=== PATIENT | male | born 1990 | race Caucasian/White ===

== ENCOUNTER 2020-12-06 23:02 | Observation (INO) ==
[2020-12-07] LABS: Hematocrit (blood only) 45.7 % (42-52); Hemoglobin 15.7 g/dL (14.0-18.0); Mean Corpuscular Hemoglobin 30.4 pg (25-34); Mean Corpuscular Hgb Conc 34.4 g/dL (32-36); Mean Corpuscular Volume 88.6 fL (80-100); Mean Platelet Volume 11.4 fL (7.4-10.4); Platelet Count 228 K/uL (130-400); RDW Coefficient of Variation 13.2 % (11.5-14.5); RDW Standard Deviation 43.2 fL (36.4-46.3); Red Blood Count 5.16 M/uL (4.7-6.1); White Blood Count 9.43 K/uL (4.8-10.8)
[2020-12-07 00:17] LABS: Albumin Level 3.6 gm/dl (3.4-5.0); BUN Creatinine Ratio 8.5 (10-20); Creatinine Clr Calc Pharmacy 93.5 ml/min; Est GFR (Non-African American) 66.5 ml/min; Potassium 4.3 mmol/L (3.5-5.1)
[2020-12-07 00:50] LABS: Bilirubin,Total 0.5 mg/dl (0.2-1); Globulin 3.7 gm/dl (2.5-4.0); Total Protein 7.3 gm/dl (6.4-8.2); Troponin I 0.051 ng/ml (0-0.045)
[2020-12-07 00:53] LABS: Basophils # (auto) 0.03 K/uL (0-0.2); Basophils % (auto) 0.3 %; Eosinophils # (auto) 0.09 K/uL (0-0.5); Immature Granulocytes # (auto) 0.03 K/uL (0.00-0.02); Immature Granulocytes % (auto) 0.3 %; Lymphocytes # (auto) 2.44 K/uL (1.2-3.4); Lymphocytes % (auto) 25.9 %; Monocytes # (auto) 0.41 K/uL (0.11-0.59); Monocytes % (auto) 4.3 %; Neutrophils # (auto) 6.43 K/uL (1.4-6.5); Neutrophils % (auto) 68.2 %; RBC Morphology Unremarkable
[2020-12-07] MEDS ORDERED: ASPIRIN CHEW 324 MG ONE (01:15)
[2020-12-07] MEDS ORDERED: ASPIRIN CHEW 324 MG PO STA (01:15)
[2020-12-07] MEDS ORDERED: METOPROLOL TARTRATE 1 MG/ML VIAL IV STA (01:34)
[2020-12-07] MEDS ORDERED: METOPROLOL TARTRATE 1 MG/ML VIAL IV ONE (01:35)
--- NOTE | 2020-12-07 01:58 | History & Physical Report ---
Date of Service December 07, 2020 Assessment & Plan (1) Elevated troponin: Plan: 30yo male with no significant past medical history presenting with elevated blood pressure reading and troponin. Patient has been experiencing increased stress at home and work. Describes an episode of pain behind his eyes, blurry vision and chest tightness associated with elevated blood pressure of 160/100. Presently asymptomatic. Denies chest pain, palpitations, shortness of breath, dizziness EKG with some non-specific changes, namely rightward axis and incomplete RBBB. No risk for PE. No tachycardia or hypoxia Troponin is elevated at 0.051. Ddx to include supply-demand mismatch in setting of acute hypertension, ?stress-induced cardiomyopathy. Do not strongly suspect ACS at this time given lack of risk factors -Observation to medical with telemetry monitoring -Trend troponin q 6 hours x 3 sets -Check 2D echo in AM -ASA 81mg po daily for now. May not need to be continued pending findings of above studies. (2) Elevated blood pressure reading: Plan: Patient with no prior history of hypertension. He does not follow routinely with a PCP. Has had physicals in the past while he was in the [employer], has never had elevated blood pressure. Possibly secondary to acute stress response in setting of increased stressors at home and work. Possibly underlying anxiety as well -Metoprolol 5mg IV given with improvement in blood pressure. Presently 154/82 -Continue to monitor -Patient should establish with a PCP to have his blood pressure followed -Consider use of PRN agent such as hydroxyzine for episodes of increased stress or anxiety Plan: F/E/N - Heplock. Electrolytes WNL. Heart healthy diet as tolerated Ppx - Low risk for DVT. Encourage ambulation Code - Full Dispo - Observation to medical with telemetry History of Present Illness Chief Complaint: hypertension, elevated troponin Primary Care Provider: NO PCP Jose Hernandez is a 30yo male with no significant past medical or surgical history presenting with elevated blood pressure, troponin of 0.051. Patient has been under a considerable amount of stress lately. He feels that he is usually able to manage his stress however, today he felt more stressed out than normal. He was at work and developed blurry vision, pain behind his eyes and tightness in his chest. He checked his blood pressure and it was elevated at 160/100. He came to the ER for further evaluation. Upon arrival patient afebrile, hypertensive with BP ranging 155-190 / 77-108. No complaints of chest pain, palpitations or SOB Patient does not routinely follow with a PCP. Has never been told that he has high blood pressure Denies excessive use of caffeine, no stimulants, steroids or supplements No additional complaints at this time ER Course: Metoprolol tartrate 5mg IV, ASA 324mg Allergies Allergy/AdvReac Type Severity Reaction Status Date / Time No Known Allergies Allergy Unverified 12/07/20 00:45 Home Medications Medication Instructions Recorded Confirmed Type glucosamine sulf dipot 2 cap PO QAM 12/07/20 12/07/20 History chlr,msm,chond 550 mg-C 30 mg-cristel 1 mg capsule (Glucosamine Chondroitin) multivitamin 1 tab PO QAM 12/07/20 12/07/20 History omega 8-oab-eez-fish oil 1,000 mg 1 cap PO QAM 12/07/20 12/07/20 History (120 mg-180 mg) capsule (Fish Oil) Past Med/Surg History Medical History (Updated 12/07/20 @ 02:27 by Gloria Perdue DO) No significant past medical history Surgical History (Updated 12/07/20 @ 02:22 by Gloria Perdue DO) No significant past surgical history Social History (Updated 12/07/20 @ 02:22 by Gloria Perdue DO) Smoking Status: Never smoker Hx Alcohol Use: No Hx Substance Use: No Preferred Language: Tristanian Communication Ability: Effective Pipeline Dispatcher Required: No Beliefs That Will Affect Care: None Current Living Situation: Alone Feels Safe at Home: Yes Safety Concerns: Feels Safe At This Time Assistive Devices: None Review of Systems Review of Systems: All systems reviewed & are unremarkable except as noted in HPI & below Physical Exam Physical Exam: General: patient resting comfortably, NAD, non-toxic in janak earance, AA&O x 4 Skin: warm, dry, intact, no rashes or lesions HEENT: NC/AT, PERRL, EOMI, anicteric sclera, conjunctiva without injection, external ear normal to inspection and nontender, nares patent, moist mucus membranes, dentition intact, no oropharyngeal lesions, neck supple, trachea midline, no LAD, no thyromegaly, no JVD Heart: +S1/S2, regular, no m/r/g Lungs: equal air entry bilaterally, no rales/rhonchi/wheezes Abd: +BS, soft, NT/ND, no masses/organomegaly/ascites Ext: warm, 2+ pulses in UE/LE bilaterally, no clubbing/cyanosis or edema Neuro: nonfocal, patient AA&O x 4, speech intact, no facial droop, moving all extremities on command with equal strength 5/5 Results & Data Results & Data ([facility]) Vital Signs (Past 12 Hours) Vital Signs Temp Pulse Pulse Resp BP BP Pulse Ox 12/07/20 01:56 74 16 180/88 H 98 12/07/20 01:40 89 16 190/95 H 98 12/07/20 01:03 89 16 175/94 H 98 12/07/20 00:31 89 16 170/90 H 98 12/07/20 00:10 86 16 155/77 H 98 12/07/20 00:01 98 12/06/20 23:11 36.9 C 87 18 166/108 H 97 Laboratory Results Laboratory Results WBC 9.43 K/uL (4.8-10.8) 12/06/20 23:55 RBC 5.16 M/uL (4.7-6.1) 12/06/20 23:55 Hgb 15.7 g/dL (14.0-18.0) 12/06/20 23:55 Hct 45.7 % (42-52) 12/06/20 23:55 MCV 88.6 fL (80-100) 12/06/20 23:55 MCH 30.4 pg (25-34) 12/06/20 23:55 MCHC 34.4 g/dL (32-36) 12/06/20 23:55 RDW Std Deviation 43.2 fL (36.4-46.3) 12/06/20 23:55 RDW Coeff of Brandi 13.2 % (11.5-14.5) 12/06/20 23:55 Plt Count 228 K/uL (130-400) 12/06/20 23:55 MPV 11.4 fL (7.4-10.4) H 12/06/20 23:55 Immature Gran % (Auto) 0.3 % 12/06/20 23:55 Neut % (Auto) 68.2 % 12/06/20 23:55 Lymph % (Auto) 25.9 % 12/06/20 23:55 Jack % (Auto) 4.3 % 12/06/20 23:55 Eos % (Auto) 1.0 % 12/06/20 23:55 Baso % (Auto) 0.3 % 12/06/20 23:55 Neut # (Auto) 6.43 K/uL (1.4-6.5) 12/06/20 23:55 Lymph # (Auto) 2.44 K/uL (1.2-3.4) 12/06/20 23:55 Jack # (Auto) 0.41 K/uL (0.11-0.59) 12/06/20 23:55 Eos # (Auto) 0.09 K/uL (0-0.5) 12/06/20 23:55 Baso # (Auto) 0.03 K/uL (0-0.2) 12/06/20 23:55 Immature Gran # (Auto) 0.03 K/uL (0.00-0.02) H 12/06/20 23:55 RBC Morphology Unremarkable 12/06/20 23:55 Sodium 138 mmol/L (136-145) 12/06/20 23:55 Potassium 4.3 mmol/L (3.5-5.1) 12/06/20 23:55 Chloride 107 mmol/L (98-107) 12/06/20 23:55 Carbon Dioxide 26 mmol/L (21-32) 12/06/20 23:55 Anion Gap 4.0 (3-11) 12/06/20 23:55 BUN 12 mg/dl (7-18) 12/06/20 23:55 Creatinine 1.40 mg/dl (0.6-1.4) 12/06/20 23:55 Est Cr Clr Drug Dosing 93.5 ml/min 12/06/20 23:55 Est GFR ( Amer) 77.0 ml/min 12/06/20 23:55 Est GFR (Non-Af Amer) 66.5 ml/min 12/06/20 23:55 BUN/Creatinine Ratio 8.5 (10-20) L 12/06/20 23:55 Glucose 101 mg/dl (70-99) H 12/06/20 23:55 Calcium 9.0 mg/dl (8.5-10.1) 12/06/20 23:55 Total Bilirubin 0.5 mg/dl (0.2-1) 12/06/20 23:55 AST 60 U/L (15-37) H 12/06/20 23:55 ALT 73 U/L (12-78) 12/06/20 23:55 Alkaline Phosphatase 61 U/L (45-117) 12/06/20 23:55 Troponin I 0.051 ng/ml (0-0.045) H* 12/06/20 23:55 Total Protein 7.3 gm/dl (6.4-8.2) 12/06/20 23:55 Albumin 3.6 gm/dl (3.4-5.0) 12/06/20 23:55 Globulin 3.7 gm/dl (2.5-4.0) 12/06/20 23:55 Albumin/Globulin Ratio 1.0 (0.9-2) 12/06/20 23:55 COVID-19 Eval Order Covid19 at [facility] 12/07/20 01:22 Diagnostic Findings CXR - by my interpretation - normal cardiac shadow, no infiltrate, edema, PTX ECG Additional Comments: EKG with SR at 83bpm, 1st degree AV block with VI=322, YNI=649, NSv=960, rightward axis, incomplete RBBB, no prior studies available for comparison Code Status & VTE Plan VTE Prophylaxis Plan VTE Prophylaxis will be ordered: Yes PG Care Time/CCT Total # of Minutes Spent Total Time Spent with Patient: Total time spent is greater than 50% in coordination of care (as documented) at patient's floor/unit and/or counseling patient: Coding Level of Care Code INT OBSERVATION CARE 50M LVL 2 Diagnoses Elevated blood pressure reading R03.0 Elevated troponin R77.8
[2020-12-07] MEDS ORDERED: ACETAMINOPHEN 325 MG TAB PO PRN (02:51)
[2020-12-07] MEDS ORDERED: ONDANSETRON INJ 2 MG/ML 2 ML VIAL IV PRN (02:51)
--- NOTE | 2020-12-07 03:21 | Emergency Department Note ---
Impression & Plan Acute non-ST elevation myocardial infarction (NSTEMI), Hypertension Admit to the [facility] ED Provider Note NAME: ZULLY FLETCHER AGE: 30 SEX: M ARRIVES VIA: Walk-In INFORMANT: Patient ED PROVIDER(S): Jamila Lo DO CHIEF COMPLAINT: Chest tightness PLAN: Disposition: Admit to the [facility] Condition: Stable MEDICAL DECISION MAKING: This is a 30-year-old male patient who presents to the emergency department complaining of chest tightness dizziness and blurry vision. Patient was found to be hypertensive at work and was referred here for evaluation. Patient was noted to be significantly hypertensive on presentation. The patient admits to significant increased stress. Patient was noted to have an elevated troponin. Patient was given aspirin and Lopressor. Chest x-ray was unremarkable. [facility] for further management Triage Nursing notes reviewed and agree with them. Vital Signs: reviewed and remarkable for pretension Differential diagnosis: STEMI, NSTEMI, anxiety, hypertension, takotsubo cardiomyopathy ER treatment provided: Aspirin, Lopressor Diagnostics interpreted by me: ECG: Normal sinus rhythm at a rate of 83 with first-degree AV block. There is an incomplete right bundle branch block with a rightward axis. There are no previous EKGs for comparison. There is no ectopy. Cardiac Monitoring: Normal sinus rhythm at 88 Laboratory studies: See below Imaging studies: As per my interpretation Portable chest x-ray: Narrow mediastinum; no cardiomegaly; no pulmonary pathology HPI: 30/M arrives for evaluation of chest tightness and blurry vision. The patient arrived at work complaining of chest tightness, dizziness and blurry vision. He admits to being under significant increased stress. 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 The nursing staff they took his blood pressure and found to be significantly elevated. They directed him here for evaluation. The patient admits that he has been having these symptoms frequently over the past month. He has been under significant stress related to his divorce. He has very few risk factors for heart disease. The patient works out frequently but did not work out today. ROS: See above HPI for pertinent positives & negatives. A total of 10 systems reviewed and were otherwise negative. PAST MEDICAL HISTORY:None PAST SURGICAL HISTORY:None FAMILY HISTORY:None SOCIAL HISTORY:The patient was in the [employer]; he is now a lieutenant at [employer]; he does not smoke; he is HOME MEDICATIONS:None ALLERGIES:None VITALS:See Below PHYSICAL EXAMINATION: HEENT: Head - normocephalic and atraumatic Pupils are equal, round, and reactive to light. Extraocular eye muscles are intact, and sclera are anicteric. Nose - moist nasal mucosa without discharge. Mouth - moist buccal mucosa. Oropharynx is nonerythematous and there is no tonsillar exudate or edema noted. Neck: Supple; no cervical lymphadenopathy or JVD Heart: Regular rate and rhythm. There is a normal S1 and S2 with no murmurs, clicks, or gallops appreciated. Lungs: Clear to auscultation bilaterally with no wheezes, rales, or rhonchi. Abdomen: Soft, completely nontender, nondistended, with good bowel sounds. There are no palpable pulsatile masses or hepatosplenomegaly. There is no guarding, rigidity, or rebound noted. Extremities: No evidence of cyanosis, clubbing, or edema. There are easily palpable peripheral pulses. Skin: warm and dry with good turgor and no rashes. ED COURSE: Patient was evaluated in room B 12. A complete history and physical was performed. An order was placed for continuous cardiac monitoring. The patient was in a normal sinus rhythm at a rate of 88. A twelve-lead EKG was obtained. An IV lock was initiated and labs are drawn as above. A portable chest x-ray was performed and was unremarkable. Patient's blood pressure remained elevated and he was given 5 mg of IV Lopressor. He was given oral aspirin. I reviewed the results of the labs and x-ray with patient. Terri the case with the [facility] hospitalist and they will evaluate for further management. The patient was given aspirin by mouth. His blood pressure remained elevated and he was given 5 mg of IV Lopressor. Jamila Lo DO Past Med/Surg History Medical History (Updated 12/07/20 @ 03:21 by Jamila Lo DO) No significant past medical history Surgical History (Updated 12/07/20 @ 02:22 by Gloria Perdue DO) No significant past surgical history Social History (Updated 12/07/20 @ 02:22 by Gloria Perdue DO) Smoking Status: Never smoker Hx Alcohol Use: No Hx Substance Use: No Preferred Language: Liberian Communication Ability: Effective Control Officer Manager Required: No Beliefs That Will Affect Care: None Current Living Situation: Alone Feels Safe at Home: Yes Assistive Devices: None Allergies Allergies Allergy/AdvReac Type Severity Reaction Status Date / Time No Known Allergies Allergy Unverified 12/07/20 00:45 Home Meds Home Medications Medication Instructions Recorded Confirmed glucosamine sulf dipot 2 cap PO QAM 12/07/20 12/07/20 chlr,msm,chond 550 mg-C 30 mg-cristel 1 mg capsule (Glucosamine Chondroitin) multivitamin 1 tab PO QAM 12/07/20 12/07/20 omega 9-puh-cpo-fish oil 1,000 mg 1 cap PO QAM 12/07/20 12/07/20 (120 mg-180 mg) capsule (Fish Oil) Results & Data (ED) Vital Signs Vital Signs - 24 hr 12/06/20 23:11 12/07/20 00:01 12/07/20 00:10 Temperature 36.9 C Temperature Source Temporal Artery Scan Pulse Rate 87 Pulse Rate [Right Finger] 86 Respiratory Rate 18 16 Respiratory Depth Normal Blood Pressure 166/108 H Blood Pressure [Right Arm] 155/77 H Blood Pressure Mean 127 Blood Pressure Mean [Right Arm] 103 Blood Pressure Position [Right Arm] Sitting Pulse Oximetry 97 98 98 Oxygen Delivery Method Room Air Room Air Room Air Sepsis Recent Fever Within 48 Hours No Sepsis New/Unexplained Change in Mental Status No Sepsis Action Taken by Nursing No Action Required 12/07/20 00:31 12/07/20 01:03 12/07/20 01:40 Temperature Temperature Source Pulse Rate Pulse Rate [Right Finger] 89 89 89 Respiratory Rate 16 16 16 Respiratory Depth Blood Pressure Blood Pressure [Right Arm] 170/90 H 175/94 H 190/95 H Blood Pressure Mean Blood Pressure Mean [Right Arm] 116 121 126 Blood Pressure Position [Right Arm] Sitting Lying Sitting Pulse Oximetry 98 98 98 Oxygen Delivery Method Room Air Room Air Room Air Sepsis Recent Fever Within 48 Hours Sepsis New/Unexplained Change in Mental Status Sepsis Action Taken by Nursing Laboratory Data Result diagrams: 12/06/20 23:55 12/06/20 23:55 Lab Results 12/06/20 12/06/20 12/07/20 Range/Units 23:55 23:55 01:22 WBC 9.43 (4.8-10.8) K/uL RBC 5.16 (4.7-6.1) M/uL Hgb 15.7 (14.0-18.0) g/dL Hct 45.7 (42-52) % MCV 88.6 (80-100) fL MCH 30.4 (25-34) pg MCHC 34.4 (32-36) g/dL RDW Std Deviation 43.2 (36.4-46.3) fL RDW Coeff of Brandi 13.2 (11.5-14.5) % Plt Count 228 (130-400) K/uL MPV 11.4 H (7.4-10.4) fL Immature Gran % (Auto) 0.3 % Neut % (Auto) 68.2 % Lymph % (Auto) 25.9 % [place] % (Auto) 4.3 % Eos % (Auto) 1.0 % Baso % (Auto) 0.3 % Neut # (Auto) 6.43 (1.4-6.5) K/uL Lymph # (Auto) 2.44 (1.2-3.4) K/uL [place] # (Auto) 0.41 (0.11-0.59) K/uL Eos # (Auto) 0.09 (0-0.5) K/uL Baso # (Auto) 0.03 (0-0.2) K/uL Immature Gran # (Auto) 0.03 H (0.00-0.02) K/uL RBC Morphology Unremarkable Sodium 138 (136-145) mmol/L Potassium 4.3 (3.5-5.1) mmol/L Chloride 107 (98-107) mmol/L Carbon Dioxide 26 (21-32) mmol/L Anion Gap 4.0 (3-11) BUN 12 (7-18) mg/dl Creatinine 1.40 (0.6-1.4) mg/dl Est Cr Clr Drug Dosing 93.5 ml/min Est GFR ( Amer) 77.0 ml/min Est GFR (Non-Af Amer) 66.5 ml/min BUN/Creatinine Ratio 8.5 L (10-20) Glucose 101 H (70-99) mg/dl Calcium 9.0 (8.5-10.1) mg/dl Total Bilirubin 0.5 (0.2-1) mg/dl AST 60 H (15-37) U/L ALT 73 (12-78) U/L Alkaline Phosphatase 61 (45-117) U/L Troponin I 0.051 H* (0-0.045) ng/ml Total Protein 7.3 (6.4-8.2) gm/dl Albumin 3.6 (3.4-5.0) gm/dl Globulin 3.7 (2.5-4.0) gm/dl Albumin/Globulin Ratio 1.0 (0.9-2) COVID-19 Eval Order Covid19 at [facility] SARS-CoV-2 (PCR) (Negative) 12/07/20 Range/Units 01:22 WBC (4.8-10.8) K/uL RBC (4.7-6.1) M/uL Hgb (14.0-18.0) g/dL Hct (42-52) % MCV (80-100) fL MCH (25-34) pg MCHC (32-36) g/dL RDW Std Deviation (36.4-46.3) fL RDW Coeff of Brandi (11.5-14.5) % Plt Count (130-400) K/uL MPV (7.4-10.4) fL Immature Gran % (Auto) % Neut % (Auto) % Lymph % (Auto) % [place] % (Auto) % Eos % (Auto) % Baso % (Auto) % Neut # (Auto) (1.4-6.5) K/uL Lymph # (Auto) (1.2-3.4) K/uL [place] # (Auto) (0.11-0.59) K/uL Eos # (Auto) (0-0.5) K/uL Baso # (Auto) (0-0.2) K/uL Immature Gran # (Auto) (0.00-0.02) K/uL RBC Morphology Sodium (136-145) mmol/L Potassium (3.5-5.1) mmol/L Chloride (98-107) mmol/L Carbon Dioxide (21-32) mmol/L Anion Gap (3-11) BUN (7-18) mg/dl Creatinine (0.6-1.4) mg/dl Est Cr Clr Drug Dosing ml/min Est GFR ( Amer) ml/min Est GFR (Non-Af Amer) ml/min BUN/Creatinine Ratio (10-20) Glucose (70-99) mg/dl Calcium (8.5-10.1) mg/dl Total Bilirubin (0.2-1) mg/dl AST (15-37) U/L ALT (12-78) U/L Alkaline Phosphatase (45-117) U/L Troponin I (0-0.045) ng/ml Total Protein (6.4-8.2) gm/dl Albumin (3.4-5.0) gm/dl Globulin (2.5-4.0) gm/dl Albumin/Globulin Ratio (0.9-2) COVID-19 Eval Order SARS-CoV-2 (PCR) NEGATIVE (Negative) Administered Medications Discontinued Medications Aspirin (Aspirin Chew 324 Mg) 324 mg PO NOW STA Stop: 12/07/20 01:16 Last Admin: 12/07/20 01:22 Dose: 324 mg Documented by: [id number] Aspirin (Aspirin Chew 324 Mg) Confirm Administered Dose 324 mg .ROUTE .STK-MED ONE Stop: 12/07/20 01:16 Last Admin: 12/07/20 01:22 Dose: Not Given Documented by: [id number] Metoprolol Tartrate (Metoprolol Tartrate 1 Mg/Ml Vial) 5 mg IV NOW STA Stop: 12/07/20 01:35 Last Admin: 12/07/20 01:39 Dose: 5 mg Documented by: [id number] Metoprolol Tartrate (Metoprolol Tartrate 1 Mg/Ml Vial) Confirm Administered Dose 5 mg IV .STK-MED ONE Stop: 12/07/20 01:36 Last Admin: 12/07/20 01:39 Dose: Not Given Documented by: [id number] Imaging Data Radiologist's Impression: Chest X-Ray 12/06/20 23:43 XR chest 1V portable CLINICAL HISTORY: Chest pain. Tachycardia. COMPARISON STUDY: No previous studies for comparison. FINDINGS: Lung volumes are normal. Lungs are clear. There is no pneumothorax or pleural effusion. Cardiac size is normal. Mediastinal contours are normal. There is no evidence for pulmonary edema. IMPRESSION: No acute cardiopulmonary findings. ACT 112: Negative or not required by law. Electronically signed by: Serafin Fox M.D. 12/07/2020 7:13 AM Discharge Plan Visit Data Chief Complaint: Tachycardia Stated Complaint: BLURRY VISION, ANXITY, Tachycardia ED Provider: Jamila Lo Discharge Problem: Acute non-ST elevation myocardial infarction (NSTEMI), Hypertension Patient Disposition: Admitted As Inpatient Discharge Instructions Interventions: ED Discharge Assessment Last Done: 12/07/20 02:29 Discharge Problem: Hypertension Qualifiers: Hypertension type: unspecified secondary hypertension Qualified Code(s): I15.9 - Secondary hypertension, unspecified
--- NOTE | 2020-12-07 07:14 | XRay Report ---
XR chest 1V portable CLINICAL HISTORY: Chest pain. Tachycardia. COMPARISON STUDY: No previous studies for comparison. FINDINGS: Lung volumes are normal. Lungs are clear. There is no pneumothorax or pleural effusion. Car diac size is normal. Mediastinal contours are normal. There is no evidence for pulmonary edema. IMPRESSION: No acute cardiopulmonary findings. ACT 112: Negative or not required by law. Electronically signed by: Serafin Fox M.D. 12/07/2020 7:13 AM
[2020-12-07 07:22] LABS: Troponin I 0.038 ng/ml (0-0.045)
[2020-12-07] MEDS ORDERED: ASPIRIN 81 MG ECTAB PO SCH (09:00)
[2020-12-07 12:16] LABS: Creatine Kinase 1219 U/L (39-308); Troponin I < 0.015 ng/ml (0-0.045)
[2020-12-07 12:31] LABS: Lyme Ab IgG w/WB Rflx Negative (Negative); Lyme Ab IgM w/WB Rflx Negative (Negative)
--- NOTE | 2020-12-07 17:48 | XCELERA ---
[id number] \\[id number]
--- NOTE | 2020-12-07 18:47 | Discharge Summary ---
Date of Service December 07, 2020 Admission HPI Per Admitting Provider Jose Hernandez is a 30yo male with no significant past medical or surgical history presenting with elevated blood pressure, troponin of 0.051. Patient has been under a considerable amount of stress lately. He feels that he is usually able to manage his stress however, today he felt more stressed out than normal. He was at work and developed blurry vision, pain behind his eyes and tightness in his chest. He checked his blood pressure and it was elevated at 160/100. He came to the ER for further evaluation. Upon arrival patient afebrile, hypertensive with BP ranging 155-190 / 77-108. No complaints of chest pain, palpitations or SOB Patient does not routinely follow with a PCP. Has never been told that he has high blood pressure Denies excessive use of caffeine, no stimulants, steroids or supplements No additional complaints at this time ER Course: Metoprolol tartrate 5mg IV, ASA 324mg Principal Diagnosis uncontrolled hypertension elevated troponin, demand ischemia due to hypertension elevated creatinine kinase from strength training first degree heart block right bundle branch block Discharge Exam The patient appeared well Vital signs as documented. Lungs are clear to auscultation and appear unlabored Cardiac exam, Rhythm is regular.. No murmurs, rubs or gallops. Abdominal exam reveals normal bowel sounds, soft non tender, no masses Extremities are nonedematous and both pedal pulses are normal. Neurologic exam is alert and oriented, no focal loss of strength or sensation Skin is without bruises or rashes Psychologically is without concerns for anxiety or depression. Discharge Data Allergies Allergy/AdvReac Type Severity Reaction Status Date / Time No Known Allergies Allergy Unverified 12/07/20 00:45 Consultations 12/07/20 01:17 ED Decision to Admit Stat Hospital Course (1) Elevated troponin: 30yo male with no significant past medical history presenting with elevated blood pressure reading and troponin. Patient has been experiencing increased stress at home and work. Describes an episode of pain behind his eyes, blurry vision and chest tightness associated with elevated blood pressure of 160/100. Patient's troponins did not trend in any elevated way remained 0.14 and then last troponin 0 0.11. Patient had no additional chest pain. Patient discloses increased emotional stressors due to marital discord. EKG shows first-degree AV block and right bundle branch block. Patient is unaware of these previous diagnosis is typically does not see a physician. He patient had Lyme testing which was negative. -Echocardiogram shows normal transthoracic echocardiogram LV function normal no significant valvular heart disease Patient will not be sent home on any additional antihypertensive medications was instructed to seek stress reduction counseling through his employer given lifestyle modification instructions and avoid stimulants. (2) Elevated blood pressure reading: Patient with no prior history of hypertension. He does not follow routinely with a PCP. Has had physicals in the past while he was in the [employer], has never had elevated blood pressure. Feel this blood pressure is a situational stressor related to life events that are happening at the current time. Strongly stressed that he should see a primary care provider to consider further evaluation of his EKG changes and hypertension I spent over 30 minutes at the bedside counseling this patient on stress reduction and the importance of paying attention to his hypertension with follow-up Code - Full Total Time Total Time Spent Total Time Spent (In Minutes): It required greater than 30 minutes to prepare this patient for discharge Discharge Plan Discharge Items Patient Disposition: Home - Self-Care Reason For Visit: HYPERTENSION, ELEVATED TROPONIN Discharge Diagnosis: high blood pressure elevated cardiac markers mild ECG changes these all should warrant follow up in the next week or so with a family doctor Activity: Per Instructions section Activity Comment: off work 12/06 and Non-emergency contact: Primary Care Provider Call non-emergency contact if: you have any medication questions and your symptoms worsen Follow-up/Referrals: PCP,NO [Primary Care Provider] - Diet: Low Sodium (2gm) Addtl Attending Provider Instructions: Cut back on salt. Limit canned, dried, packaged, and fast foods. Season foods with herbs instead of salt when you cook. The [place] [employer] (AHA) "ideal" sodium intake recommendation is 1,500 milligrams per day. However, since [place]'s eat so much salt, the AHA says a positive change can occur by cutting back to even 2,400 milligrams of sodium a day. Limit drinks that contain caffeine (coffee, black or green tea, cola) to 2 per day. Never take stimulants such as amphetamines or cocaine; these drugs can be deadly for someone with high blood pressure. Control your stress. Learn stress-management techniques. contact your employer based service to help with your current stressors, or consider contacting the help number associated with your health insurance Limit alcohol to no more than 1 drink a day for women and 2 drinks a day for men. Pending Studies at Discharge: Yes Stand-Alone Forms: My [facility] [employer], Smoking Cessation Medications and DC Order Prescriptions: Continued multivitamin Tablet 1 tab PO QAM RF: 0 omega 0-czt-cno-fish oil [Fish Oil] 1,000 mg (120 mg-180 mg) Capsule 1 cap PO QAM RF: 0 Glucosamine Chondroitin 550-30-1 mg Capsule 2 cap PO QAM RF: 0 Discharge Orders: Discharge Order (Routine); Ordered 12/07/20 Ordered By: Edmund Curran/Other Patient Handouts: Low-Salt Choices, What Is High Blood Pressure? Admission Data Admit Date/Time: 12/07/20 01:56 Attending Provider: Edmund Jeffers Admit Provider: Gloria Perdue Primary Care Provider: PCP,NO Other Providers: Gloria Perdue Other Interventions: Discharge Summary Assessment (RN) Last Done: 12/07/20 12:56 Coding Level of Care Code D/C DAY MANAGEMENT >30 MINS Diagnoses Elevated troponin R77.8 Elevated blood pressure reading R03.0
--- NOTE | 2020-12-08 17:32 | Electrocardiogram Report ---
Test Reason : Blood Pressure : / mmHG Vent. Rate : 083 BPM Atrial Rate : 083 BPM P-R Int : 210 ms QRS Dur : 108 ms QT Int : 342 ms P-R-T Axes : 066 092 025 degrees QTc Int : 401 ms Sinus rhythm with 1st degree A-V block Possible Left atrial enlargement Rightward axis Incomplete right bundle branch block Borderline ECG No previous ECGs available Confirmed by Chris Grigsby ([id number]) on 12/08/2020 5:32:27 PM Referred By: REFERRED SELF Confirmed By:Mesfin Grigsby
== END 2020-12-07 13:47 | disposition home or self-care (01) ==
LOC: ED 23:02 → EDINP 23:02 → SUATTDRO 12-07 01:56 → EDINP 12-07 02:29 → 2S 12-07 05:23